=== PATIENT | male | born 1965 | race Caucasian/White ===

== ENCOUNTER 2018-07-18 12:24 | Emergency (ER) | payer OTHER ==
[~2018-07-18] VITALS: Ht 172.7 cm; Wt 80.7 kg
--- NOTE | 2018-07-18 13:46 | NUR ---
Avon sandwich & a drink were given to patient.
--- NOTE | 2018-07-18 13:54 | NUR ---
Patient wants to go home, pending discharge papers. ER doctor is in CCU at this time ( possibly stabilizing a CCU patient's airway). The situation was explained to patient re: potential delays. Patient and family verbalized understanding.
--- NOTE | 2018-07-18 14:08 | NUR ---
Patient discharged to home in stable conditon with brisk steady gait. Written and verbal after care instructions given to patient and family. Patient and spouse verbalized understanding of instructions.
== END 2018-07-18 14:09 | disposition home or self-care (01) ==
LOC: ER 12:26
DX: S16.1XXA Strain of muscle, fascia and tendon at neck level, initial encounter (principal); M54.5 Low back pain; M25.512 Pain in left shoulder; V49.9XXA Car occupant (driver) (passenger) injured in unspecified traffic accident, initial encounter; Y93.89 Activity, other specified; Y92.89 Other specified places as the place of occurrence of the external cause; Y99.8 Other external cause status
CPT/HCPCS: 72050; 72110; 73030; A4663

== ENCOUNTER 2019-04-21 12:34 | Emergency (ER) | payer OTHER ==
[~2019-04-21] VITALS: Ht 175.3 cm; Wt 72.6 kg
--- NOTE | 2019-04-21 12:55 | NUR ---
Patient is AOx4, c/o feelings of "being off balance" while walking & with position changes, denies chest pains or dizziness@this time, calm, respiration:easy, skin is warm & dry.
--- NOTE | 2019-04-21 13:08 | NUR ---
is at bedside. MSE in progress.
[2019-04-21] MEDS ORDERED: IV NORMAL SALINE 1000 ML BAG IV ONE (13:15)
[2019-04-21 13:58] LABS: BASOPHILS % (AUTO) 0.3 % (0.0-2.0); EOSINOPHILS % (AUTO) 0.3 % (0.0-7.0); HEMATOCRIT 44.5 % (36.7-47.1); HEMOGLOBIN 14.8 g/dL (12.5-16.3); LYMPHOCYTES # (AUTO) 2.4 K/uL (20.0-40.0); LYMPHOCYTES % (AUTO) 29.7 % (20.5-51.5); MEAN CORPUSCULAR HEMOGLOBIN 31.6 uug (23.8-33.4); MEAN CORPUSCULAR HGB CONC 33 g/dL (32.5-36.3); MEAN CORPUSCULAR VOLUME 94.7 fL (73.0-96.2); MONOCYTES # (AUTO) 0.8 K/uL (2.0-10.0); MONOCYTES % (AUTO) 10.3 % (0.0-11.0); NEUTROPHILS # (AUTO) 4.8 K/uL (1.8-8.9); NEUTROPHILS % (AUTO) 59.4 % (38.5-71.5); PLATELET COUNT (AUTO) 341 K/uL (152-348); WHITE BLOOD COUNT (AUTO) 8.1 K/uL (3.6-10.2)
[2019-04-21 14:02] LABS: POTASSIUM 3.9 mmol/L (3.5-5.1)
[2019-04-21 14:18] LABS: BILIRUBIN,DIRECT 0.2 mg/dL (0.0-0.2); BILIRUBIN,TOTAL 0.8 mg/dL (0.2-1.0); TOTAL PROTEIN, SERUM 7.9 g/dL (6.4-8.2)
--- NOTE | 2019-04-21 14:37 | NUR ---
DR JAQUEZ AT BEDSIDE MADE PATIENT AWARE OF TEST RESULTS.
[2019-04-21 14:41] LABS: ETHANOL < 3 MG/DL (0-0)
[2019-04-21] MEDS ORDERED: ASPIRIN 325 MG TABLET ONE (14:45)
[2019-04-21] MEDS ORDERED: ASPIRIN 325 MG TABLET PO ONE (14:45)
--- NOTE | 2019-04-21 15:19 | NUR ---
Patient ambulated to bathroom with steady gait, still with feelings of "being off balance" when walking, for possible admission to our hospital.
[2019-04-21] MEDS ORDERED: BUPR-96 PO (15:31)
--- NOTE | 2019-04-21 16:00 | NUR ---
"Can you check my left ear for Meniere's disease?" per patient's verbalization. MD notified.
[2019-04-21] MEDS ORDERED: HYDROCODONE/APAP 5-325MG TABLET PO ONE (17:45)
[2019-04-21] MEDS ORDERED: HYDROCODONE/APAP 5-325MG TABLET ONE (17:49)
--- NOTE | 2019-04-21 18:00 | NUR ---
Patient is still waiting for transfer information from his insurance ([employer]), monitored closely for chest pains. Patient ambulated to bathroom with steady gait, +feelings of being "off balance" during ambulation, no chest pains.
--- NOTE | 2019-04-21 18:18 | NUR ---
Patient will be tranferred to outside Facility: [facility] Physician:Dr Walker Location: room 213B Nurse: Tahira mccurdy nursing hands off report@[id number] [facility] ambulance ETA= 1999 (arranged by [employer])
--- NOTE | 2019-04-21 18:24 | NUR ---
Patient ate 25% of hot dinner tray, pending ambulance pickling grader@this time. Lights dimmed for comfort. Monitored closely for chest pains & dizziness
--- NOTE | 2019-04-21 18:40 | NUR ---
Patient is resting comfortably on gurney with eyes closed.
--- NOTE | 2019-04-21 18:58 | NUR ---
Hands off report given to NOE Estrada.
--- NOTE | 2019-04-21 19:03 | NUR ---
Assumed care of patient, no acute distress noted. Awaiting transfer to [facility].
--- NOTE | 2019-04-21 20:23 | NUR ---
Spoke to [facility], [facility] of 0408.
--- NOTE | 2019-04-21 20:32 | NUR ---
Patient does not wish to proceed with medical care recommended by Dr. Cabrera. Patient given information related to possible complications, up to and including , which could occur as a result of leaving the hospital at this time. Patient verbalizes understanding of risks involved due to leaving against medical advice. Patient has signed AMA form. Peripheral IV removed prior to d/c. Ambulated from ER with stable gait. All belongings with patient.
== END 2019-04-21 20:37 | disposition short-term general hospital (02) ==
LOC: ER 12:35
DX: R07.9 Chest pain, unspecified (principal); R26.9 Unspecified abnormalities of gait and mobility; I10 Essential (primary) hypertension; Z79.899 Other long term (current) drug therapy
CPT/HCPCS: 36415; 70450; 71045; 72125; 80048; 80076; 83690; 84484; 85025; 85730; 93005; 99285; G0480; 70030-TC; A4663; J7030